=== PATIENT | male | born 1965 | race Caucasian/White ===

== ENCOUNTER 2016-12-10 18:37 | Emergency (ER) | payer OTHER ==
[~2016-12-10] VITALS: Ht 172.7 cm; Wt 103.9 kg
[~2016-12-10 18:37] MED LIST: Bactrim,Septra DS 80 PO; CLINDAMYCIN HC300 MG PO; Cipro PO; Coumadin,Jantoven PO; ENDOCET 5-3251 EACH PO; FLEXERIL10 MG PO; LORTAB 5-325 M1 EACH PO; MEDROL DOSEPAK4 MG PO; MOTRIN600 MG PO; MOTRIN800 MG PO; NOHOMEMEDS; NORCO 5/3251 TABLET PO; NORCO 7.5/321 TABLET PO; PREDNISONE10 MG PO; SKELAXIN800 MG PO; TRAMADOL HCL50 MG PO; ULTRAM50 MG PO; VICODIN 5-3001 EACH PO; XARELTO1 EACH PO; [UNRECOGNIZED DRUG - REMARK]
[2016-12-10] MEDS ORDERED: PERCOCET 5/31 TABLET PO (22:35)
[2016-12-10] MEDS ORDERED: MEDROL DOSEPAK4 MG PO (22:35)
[2016-12-10 22:51] VITALS: BP 168/103
== END 2016-12-10 22:54 | disposition home or self-care (01) ==
LOC: EME 18:37 → EXP 18:37
PROC: 3E0U3BZ Introduction of Anesthetic Agent into Joints, Percutaneous Approach (ICD-10-PCS; principal; 2016-12-10)
DX: M25.512 Pain in left shoulder (principal)
CPT/HCPCS: 73030; 99281; 99284; J7512; S0020

== ENCOUNTER → 2016-12-22 16:28 | Emergency (ER) | payer OTHER ==
[~2016-12-22] VITALS: Ht 172.7 cm; Wt 104.6 kg
[~2016-12-22 16:28] MED LIST changes: +PERCOCET 5/31 TABLET PO
[2016-12-22 16:41] VITALS: BP 141/83
== END | disposition left against medical advice (07) ==
LOC: EME 16:28
DX: M25.512 Pain in left shoulder (principal); Z53.21 Procedure and treatment not carried out due to patient leaving prior to being seen by health care provider

== ENCOUNTER 2017-02-27 09:05 | Emergency (ER) | payer OTHER ==
[~2017-02-27] VITALS: Ht 172.7 cm; Wt 99.7 kg
[2017-02-27] MEDS ORDERED: FLEXERIL10 MG PO (10:12)
[2017-02-27 10:30] VITALS: BP 162/102
== END 2017-02-27 10:34 | disposition home or self-care (01) ==
LOC: EME 09:05
DX: M54.12 Radiculopathy, cervical region (principal)
CPT/HCPCS: 99281; 99283; J1885

== ENCOUNTER 2017-04-27 13:17 | Emergency (ER) | payer OTHER ==
[~2017-04-27] VITALS: Ht 172.7 cm; Wt 101.4 kg
[2017-04-27 14:05] LABS: HEMATOCRIT 42.6 % (38.0-50.0); MCH 32.5 PG (29.0-34.0); MCHC 35.2 G/DL (30.0-36.0); MCV 92.2 FL (86-99); PLATELET COUNT 199 K/uL (156-360); RBC DIS.WIDTH-CV 13.1 % (11.8-14.6); RBC DIS.WIDTH-SD 44.5 % (39-53); RED BLOOD COUNT 4.62 M/uL (4.00-5.50); WHITE BLOOD COUNT 8.9 K/uL (4.1-10.2)
[2017-04-27 14:20] LABS: CHLORIDE 105 mEq/L (99-109); POTASSIUM 4.1 mEq/L (3.7-5.4); SODIUM 138 mEq/L (136-147)
[2017-04-27 14:22] LABS: GLUCOSE 114 mg/dL (70-99)
[2017-04-27 14:24] LABS: ANION GAP 8 MEQ/L (2-14)
[2017-04-27 14:26] LABS: GFR ESTIMATE (CALCULATED) > 59 mL/min/
[2017-04-27 14:27] LABS: UREA NITROGEN (BUN) 12 mg/dL (9-23)
[2017-04-27 15:25] LABS: ADD MIUA? YES; BILIRUBIN NEGATIVE; BLOOD SMALL; COLOR YELLOW ((YELLOW)); GLUCOSE (STRIP) NEGATIVE; KETONES NEGATIVE; LEUKOCYTES NEGATIVE; NITRITE NEGATIVE; PROTEIN (STRIP) 30; UROBILINOGEN 0.2 MG/DL (0.2-1.0)
[2017-04-27 15:30] LABS: BACTERIA RARE /HPF; EPITHELIAL CELLS RARE /HPF; MUCUS TRACE /LPF; RED BLOOD CELLS 0-5 /HPF (0-5); UCUL ADDED? NO; WHITE BLOOD CELLS 0-5 /HPF (0-5)
[2017-04-27] MEDS ORDERED: NORCO 5/3251 TABLET PO (16:16)
[2017-04-27] MEDS ORDERED: INDOCIN50 MG PO (16:16)
[2017-04-27 16:25] VITALS: BP 128/82
== END 2017-04-27 16:26 | disposition home or self-care (01) ==
LOC: EME 13:17
DX: N20.1 Calculus of ureter (principal)
CPT/HCPCS: 74176; 80048; 81003; 85027; 99281; 99285; J1885; J2270; J2405; J7040

== ENCOUNTER 2017-05-07 11:39 | Emergency (ER) | payer OTHER ==
[~2017-05-07] VITALS: Ht 172.7 cm; Wt 101.2 kg
[~2017-05-07 11:39] MED LIST changes: +INDOCIN50 MG PO
[2017-05-07] MEDS ORDERED: NORCO 5/3251 TABLET PO (12:53)
[2017-05-07 12:58] VITALS: BP 142/88
== END 2017-05-07 13:00 | disposition home or self-care (01) ==
LOC: EME 11:39
DX: M25.511 Pain in right shoulder (principal)
CPT/HCPCS: 73030; 99281; 99283

== ENCOUNTER 2017-06-30 18:48 | Emergency (ER) | payer OTHER ==
[~2017-06-30] VITALS: Ht 172.7 cm; Wt 108.5 kg
[2017-06-30 19:22] LABS: HEMATOCRIT 40.5 % (38.0-50.0); MCH 32.7 PG (29.0-34.0); MCHC 35.8 G/DL (30.0-36.0); MCV 91.4 FL (86-99); MEAN PLAT.VOLUME 10.1 uM^3 (9.0-12.4); PLATELET COUNT 202 K/uL (156-360); RBC DIS.WIDTH-CV 11.9 % (11.8-14.6); RBC DIS.WIDTH-SD 40.2 % (39-53); RED BLOOD COUNT 4.43 M/uL (4.00-5.50); WHITE BLOOD COUNT 9.5 K/uL (4.1-10.2)
[2017-06-30 19:30] LABS: CHLORIDE 100 mEq/L (99-109); SODIUM 139 mEq/L (136-147)
[2017-06-30 19:32] LABS: GLUCOSE 116 mg/dL (70-99)
[2017-06-30 19:34] LABS: ANION GAP 14 MEQ/L (2-14)
[2017-06-30 19:36] LABS: GFR ESTIMATE (CALCULATED) > 59 mL/min/
[2017-06-30 19:37] LABS: UREA NITROGEN (BUN) 12 mg/dL (9-23)
[2017-06-30 19:42] LABS: TROP-I INTERPRETATION NEGATIVE; TROPONIN-I < 0.01 ng/mL (0.0-0.30)
[2017-06-30 20:10] LABS: D-DIMER ELISA < 150.00 ng/mLDDU (<230)
[2017-06-30 22:29] LABS: TROP-I INTERPRETATION NEGATIVE; TROPONIN-I < 0.01 ng/mL (0.0-0.30)
[2017-06-30 23:02] VITALS: BP 199/102
== END 2017-07-01 00:17 | disposition home or self-care (01) ==
LOC: EME 18:48
PROVIDERS: Emergency Medicine
DX: R07.89 Other chest pain (principal); Z86.718 Personal history of other venous thrombosis and embolism; F12.90 Cannabis use, unspecified, uncomplicated
CPT/HCPCS: 71020; 80048; 84484; 85027; 85379; 93005; 99281; 99285; J2270

== ENCOUNTER 2017-10-15 19:38 | Emergency (ER) | payer OTHER ==
[~2017-10-15] VITALS: Ht 172.7 cm; Wt 112.9 kg
[2017-10-15 20:23] VITALS: BP 175/94
[2017-10-15 20:38] LABS: HEMATOCRIT 41.6 % (38.0-50.0); HEMOGLOBIN 14.9 G/DL (12.5-16.6); MCH 32.4 PG (29.0-34.0); MCHC 35.8 G/DL (30.0-36.0); MCV 90.4 FL (86-99); PLATELET COUNT 207 K/uL (156-360); RBC DIS.WIDTH-CV 12.1 % (11.8-14.6); RBC DIS.WIDTH-SD 39.9 % (39-53); WHITE BLOOD COUNT 9.9 K/uL (4.1-10.2)
[2017-10-15 20:51] LABS: CHLORIDE 105 mEq/L (99-109); POTASSIUM 4.1 mEq/L (3.7-5.4); SODIUM 137 mEq/L (136-147)
[2017-10-15 20:53] LABS: GLUCOSE 119 mg/dL (70-99)
[2017-10-15 20:57] LABS: CREATININE 1.3 mg/dL (0.6-1.3); GFR ESTIMATE (CALCULATED) > 59 mL/min/ (58.99-99999)
[2017-10-15 20:58] LABS: UREA NITROGEN (BUN) 14 mg/dL (9-23)
[2017-10-15 21:00] LABS: TROP-I INTERPRETATION NEGATIVE; TROPONIN-I 0.01 ng/mL (0.0-0.30)
== END 2017-10-15 23:35 | disposition left against medical advice (07) ==
LOC: EME 19:38
DX: R91.8 Other nonspecific abnormal finding of lung field (principal); I45.4 Nonspecific intraventricular block; R94.31 Abnormal electrocardiogram [ECG] [EKG]; Z53.21 Procedure and treatment not carried out due to patient leaving prior to being seen by health care provider
CPT/HCPCS: 71046; 80048; 84484; 85027; 93005

== ENCOUNTER 2018-04-07 13:09 | Inpatient (IN) | payer SELFPAY ==
[~2018-04-07] VITALS: Ht 172.7 cm; Wt 110.4 kg
[2018-04-07 14:25] LABS: HEMATOCRIT 42.5 % (38.0-50.0); HEMOGLOBIN 15.5 G/DL (12.5-16.6); MCHC 36.5 G/DL (30.0-36.0); MCV 93.2 FL (86-99); PLATELET COUNT 162 K/uL (156-360); RBC DIS.WIDTH-CV 13.3 % (11.8-14.6); RBC DIS.WIDTH-SD 45.2 % (39-53); RED BLOOD COUNT 4.56 M/uL (4.00-5.50)
[2018-04-07 14:31] LABS: INTER. NORMALIZED RATIO 1.2
[2018-04-07 14:32] LABS: ALBUMIN 4.4 g/dL (3.2-4.8)
[2018-04-07 14:33] LABS: CHLORIDE 100 mEq/L (99-109); POTASSIUM 4.3 mEq/L (3.7-5.4); PTT 23.5 SEC (25-37); SODIUM 138 mEq/L (136-147)
[2018-04-07 14:35] LABS: GLUCOSE 119 mg/dL (70-99)
[2018-04-07 14:37] LABS: TOTAL BILIRUBIN 1.2 mg/dL (0.0-1.0)
[2018-04-07 14:38] LABS: ALKALINE PHOSPHATASE 91 IU/L (3-129)
[2018-04-07 14:39] LABS: CREATININE 2.4 mg/dL (0.6-1.3); GFR ESTIMATE (CALCULATED) 30 mL/min/ (58.99-99999)
[2018-04-07 14:40] LABS: AST (GOT) 25 IU/L (2-34); UREA NITROGEN (BUN) 19 mg/dL (9-23)
[2018-04-07 14:42] LABS: ALT (GPT) 27 IU/L (3-49)
[2018-04-07] MEDS ORDERED: ADVIL200 MG PO (16:32)
[2018-04-07 21:52] VITALS: BP 177/90
[2018-04-08 03:48] VITALS: BP 162/84
[2018-04-08 07:33] LABS: ALBUMIN 3.5 G/DL (3.2-4.8); CHLORIDE 101 MEQ/L (99-109); GLUCOSE 112 mg/dL (70-99); MAGNESIUM 1.8 mg/dl (1.3-2.7); PHOSPHORUS 3.1 mg/dL (2.5-4.9); POTASSIUM 3.9 MEQ/L (3.7-5.4); SODIUM 137 MEQ/L (136-147); UREA NITROGEN (BUN) 14 mg/dL (9-23)
[2018-04-08 07:35] LABS: CREATININE 1.3 MG/DL (0.6-1.3); GFR ESTIMATE (CALCULATED) > 59 mL/min/ (58.99-99999)
[2018-04-08 07:41] VITALS: BP 140/84
[2018-04-08 08:25] LABS: BASOPHIL (%) 0.7 % (0-1); BASOPHIL COUNT 0.1 K/uL (0-0.1); EOSINOPHIL COUNT 0.4 K/uL (0-0.3); HEMATOCRIT 37.2 % (38.0-50.0); HEMOGLOBIN 12.9 G/DL (12.5-16.6); IMMATURE GRANULOCYTE (%) 0.6 % (0.0-0.7); LYMPHOCYTE (%) 24.2 % (15-42); MCH 32.9 PG (29.0-34.0); MCHC 34.7 G/DL (30.0-36.0); MCV 94.9 FL (86-99); MONOCYTE (%) 17.2 % (3-12); MONOCYTE COUNT 1.4 K/uL (0-0.8); NEUTROPHIL (%) 52.3 % (45-76); NEUTROPHIL COUNT 4.4 K/uL (1.8-6.4); PLATELET COUNT 143 K/uL (156-360); RBC DIS.WIDTH-CV 13.5 % (11.8-14.6); RBC DIS.WIDTH-SD 46.5 % (39-53); RED BLOOD COUNT 3.92 M/uL (4.00-5.50); WHITE BLOOD COUNT 8.4 K/uL (4.1-10.2)
[2018-04-08 10:20] LABS: APPEARANCE CLEAR ((CLEAR)); BILIRUBIN NEGATIVE; BLOOD SMALL; COLOR YELLOW ((YELLOW)); GLUCOSE (STRIP) NEGATIVE; KETONES NEGATIVE; LEUKOCYTES NEGATIVE; NITRITE NEGATIVE; PROTEIN (STRIP) 30; SPECIFIC GRAVITY 1.021 (1.000-1.030); UROBILINOGEN 0.2 MG/DL (0.2-1.0)
[2018-04-08 10:39] LABS: BACTERIA NONE SEEN /HPF; EPITHELIAL CELLS RARE /HPF; MUCUS TRACE /LPF; RED BLOOD CELLS 0-5 /HPF (0-5); UCUL ADDED? NO; WHITE BLOOD CELLS 0-5 /HPF (0-5)
[2018-04-08 10:51] LABS: HEPATITIS C ANTIBODY Nonreactive
[2018-04-08 10:52] LABS: HIV-1/2 AB/AG COMBO Nonreactive
[2018-04-08 11:32] VITALS: BP 150/90
[2018-04-08 11:53] LABS: URINE TOTAL PROTEIN 23 MG/DL (0-10)
[2018-04-08 12:48] LABS: EOSINOPHILS,URINE NONE SEEN
[2018-04-08 14:31] LABS: CREATINE KINASE 98 IU/L (1-294)
[2018-04-08 15:28] VITALS: BP 148/89
[2018-04-08 19:44] VITALS: BP 163/75
[2018-04-08 22:37] LABS: UR CREATININE CONCENTRATION 268.3 MG/DL
[2018-04-09] VITALS (7 sets, daily range): BP systolic 142–181; BP diastolic 82–90
[2018-04-09 06:22] LABS: C4 COMPLEMENT 27 MG/DL (10-40)
[2018-04-09 06:27] LABS: ALBUMIN 3.7 G/DL (3.2-4.8); CHLORIDE 99 MEQ/L (99-109); CREATININE 0.9 MG/DL (0.6-1.3); GFR ESTIMATE (CALCULATED) > 59 mL/min/ (58.99-99999); GLUCOSE 112 mg/dL (70-99); PHOSPHORUS 2.6 mg/dL (2.5-4.9); POTASSIUM 4.2 MEQ/L (3.7-5.4); SODIUM 135 MEQ/L (136-147); UREA NITROGEN (BUN) 9 mg/dL (9-23)
[2018-04-09 10:25] LABS: HEPATITIS B SURFACE ANTIBODY Nonreactive; HEPATITIS B SURFACE ANTIGEN Nonreactive
[2018-04-10 06:00] LABS: INTER. NORMALIZED RATIO 1.2
[2018-04-10 07:37] VITALS: BP 143/79
[2018-04-10 12:37] VITALS: BP 140/70
[2018-04-10 16:19] VITALS: BP 140/70
[2018-04-10 22:50] VITALS: BP 152/94
[2018-04-11 06:37] LABS: INTER. NORMALIZED RATIO 1.3
[2018-04-11 07:13] VITALS: BP 140/78
[2018-04-11 16:14] VITALS: BP 132/80
[2018-04-11 23:16] VITALS: BP 148/71
[2018-04-12 06:03] LABS: INTER. NORMALIZED RATIO 1.2
[2018-04-12 06:58] VITALS: BP 129/60
[2018-04-12 08:44] LABS: HEMATOCRIT 38.8 % (38.0-50.0); HEMOGLOBIN 13.7 G/DL (12.5-16.6); MCH 33.4 PG (29.0-34.0); MCHC 35.3 G/DL (30.0-36.0); MCV 94.6 FL (86-99); RBC DIS.WIDTH-CV 13.3 % (11.8-14.6); RBC DIS.WIDTH-SD 46.2 % (39-53); WHITE BLOOD COUNT 7.3 K/uL (4.1-10.2)
[2018-04-12 08:57] LABS: CHLORIDE 99 MEQ/L (99-109); GFR ESTIMATE (CALCULATED) > 59 mL/min/ (58.99-99999); GLUCOSE 105 mg/dL (70-99); POTASSIUM 4.7 MEQ/L (3.7-5.4); SODIUM 134 MEQ/L (136-147); UREA NITROGEN (BUN) 10 mg/dL (9-23)
[2018-04-12 09:04] LABS: PLATELET COUNT 211 K/uL (156-360)
[2018-04-12] MEDS ORDERED: ELIQUIS5 MG PO (10:03)
[2018-04-12] MEDS ORDERED: OXYCODONE HCL5 MG PO (10:05)
[2018-04-12] MEDS ORDERED: ENDOCET 5-3251 EACH PO (10:05)
[2018-04-12] MEDS ORDERED: CYCLOBENZAPRINE10 MG PO (10:05)
[2018-04-12 20:29] LABS: MYELOPEROXIDASE ANTIBODY (MPO) <1.0 AI (<1.0); PROTEINASE-3 ANTIBODY+ <1.0 AI (<1.0)
== END 2018-04-12 12:59 | disposition home or self-care (01) | DRG 300 ==
LOC: EME 13:09 → EDOF 20:39 → 5SOUTH 20:39 → ENRESERV 20:41 → 5SOUTH 21:32
PROVIDERS: Hospitalist; Internal Medicine; Physician Assistant
DX: I82.411 Acute embolism and thrombosis of right femoral vein (principal); I82.521 Chronic embolism and thrombosis of right iliac vein; I82.511 Chronic embolism and thrombosis of right femoral vein; I82.5Z1 Chronic embolism and thrombosis of unspecified deep veins of right distal lower extremity; E86.0 Dehydration; N17.9 Acute kidney failure, unspecified; R80.9 Proteinuria, unspecified; K21.9 Gastro-esophageal reflux disease without esophagitis; E66.9 Obesity, unspecified; Z68.36 Body mass index [BMI] 36.0-36.9, adult; D68.59 Other primary thrombophilia; E83.52 Hypercalcemia; F12.90 Cannabis use, unspecified, uncomplicated; I82.221 Chronic embolism and thrombosis of inferior vena cava; R31.29 Other microscopic hematuria; I10 Essential (primary) hypertension
CPT/HCPCS: 74177; 76770; 80048; 80053; 80069; 81003; 82330; 82550; 82570; 82575; 83735; 84156; 84300; 85025; 85027; 85610; 85651; 85730; 86021 90; 86038; 86160; 86334; 86335; 86430; 86706; 86803; 87340; 87389; 89190; 93971; 99281; 99285; J1650; J2270; J3010; J7030

== ENCOUNTER 2018-04-16 14:08 | Emergency (ER) | payer SELFPAY ==
[~2018-04-16] VITALS: Ht 172.7 cm; Wt 106.2 kg
[~2018-04-16 14:08] MED LIST changes: +ADVIL200 MG PO; +CYCLOBENZAPRINE10 MG PO; +ELIQUIS5 MG PO; +OXYCODONE HCL5 MG PO
[2018-04-16] MEDS ORDERED: NORCO 10/3251 TABLET PO (14:54)
[2018-04-16 15:12] VITALS: BP 156/100
== END 2018-04-16 15:14 | disposition home or self-care (01) ==
LOC: EME 14:08
DX: I82.401 Acute embolism and thrombosis of unspecified deep veins of right lower extremity (principal); Z76.0 Encounter for issue of repeat prescription; G89.29 Other chronic pain
CPT/HCPCS: 99281; 99284

== ENCOUNTER 2018-04-28 12:08 | Emergency (ER) | payer SELFPAY ==
[~2018-04-28] VITALS: Ht 172.7 cm; Wt 106.1 kg
[~2018-04-28 12:08] MED LIST changes: +NORCO 10/3251 TABLET PO
[2018-04-28 13:05] LABS: HEMATOCRIT 41.2 % (38.0-50.0); HEMOGLOBIN 14.3 G/DL (12.5-16.6); MCH 32.3 PG (29.0-34.0); MCHC 34.7 G/DL (30.0-36.0); RBC DIS.WIDTH-CV 12.3 % (11.8-14.6); RBC DIS.WIDTH-SD 42.5 % (39-53); RED BLOOD COUNT 4.43 M/uL (4.00-5.50); WHITE BLOOD COUNT 10.4 K/uL (4.1-10.2)
[2018-04-28 13:06] LABS: PLATELET COUNT 285 K/uL (156-360)
[2018-04-28 13:13] LABS: INTER. NORMALIZED RATIO 1.4
[2018-04-28 13:16] LABS: PTT 32.1 SEC (25-37)
[2018-04-28 13:19] LABS: ALBUMIN 4.1 g/dL (3.2-4.8)
[2018-04-28 13:20] LABS: CHLORIDE 104 mEq/L (99-109); POTASSIUM 4.7 mEq/L (3.7-5.4); SODIUM 137 mEq/L (136-147)
[2018-04-28 13:22] LABS: GLUCOSE 135 mg/dL (70-99); TOTAL PROTEIN 7.6 g/dL (6.4-8.3)
[2018-04-28 13:24] LABS: TOTAL BILIRUBIN 0.8 mg/dL (0.0-1.0)
[2018-04-28 13:25] LABS: ALKALINE PHOSPHATASE 86 IU/L (3-129)
[2018-04-28 13:26] LABS: CREATININE 1.2 mg/dL (0.6-1.3); GFR ESTIMATE (CALCULATED) > 59 mL/min/ (58.99-99999)
[2018-04-28 13:27] LABS: AST (GOT) 17 IU/L (2-34); UREA NITROGEN (BUN) 14 mg/dL (9-23)
[2018-04-28 13:28] LABS: ALT (GPT) 21 IU/L (3-49)
[2018-04-28] MEDS ORDERED: COUMADIN5 MG PO (13:51)
[2018-04-28] MEDS ORDERED: ULTRAM50 MG PO (14:35)
[2018-04-28 14:50] VITALS: BP 118/70
== END 2018-04-28 14:55 | disposition home or self-care (01) ==
LOC: EME 12:08
PROVIDERS: Nurse Practitioner Family
DX: I82.4Z1 Acute embolism and thrombosis of unspecified deep veins of right distal lower extremity (principal); I82.511 Chronic embolism and thrombosis of right femoral vein; Z79.01 Long term (current) use of anticoagulants
CPT/HCPCS: 80053; 85027; 85610; 85730; 93971; 99281; 99284; J1650